=== PATIENT | male | born 1960 | race African-American/Black ===

== ENCOUNTER → 2017-05-07 | Outpatient (CLI) | payer MEDICARE, OTHER ==
[~2017-05-07] VITALS: Ht 188 cm; Wt 127.0 kg
[~2017-05-07] MED LIST: ASPI1TAB57 PO; CALC0.5C PO; CHLORHEXIDINE GLUCONATE 2 % 1 PACK (2 CLOTHS) TOPICAL PRN; CINA30 PO; HYDR-3799 PO; LACTATED RINGER'S 1000 ML IV PRN; LEVEMIR SQ; LIDOCAINE HCL 1% PF 5 ML SYRINGE OTHER ONE; LOSA50TA PO; METOPROLOL TARTRATE 25 MG TAB PO PRN; NIFE60TA58 PO; PHENYLEPH/NS 1000 MCG/10 ML SYR IV ONE; POVIDONE IODINE 5% (ANTISEPSIS KIT) 4 APPLICATIONS EACH NARE PRN; PROPOFOL 200 MG/20 ML AMP IV ONE; SODIUM CHLORID 0.9% 500 ML IV PRN
[2017-05-07 08:56] VITALS: BP 161/85; PULSE 85; RESP 18; TEMP 98.5; O2SAT 98
[2017-05-07 11:45] VITALS: BP 145/75; PULSE 74; RESP 16; TEMP 97.1; O2SAT 97
--- NOTE | 2017-05-07 12:32 | PD.PROCEDR ---
GI Procedure PROCEDURE PERFORMED Colonoscopy with snare polypectomy INDICATION FOR PROCEDURE History of colon polyps PROCEDURE: The procedure, risks and benefits were discussed with Mr. Luna and informed consent was obtained. Anesthesia sedated him with Diprivan. He was placed in the left lateral decubitus position. Colonoscopy: The Pentax videoscope was introduced through the rectum and advanced to cecum where the ileocecal valve and appendiceal orifice were identified. Retroflexion was performed in the rectum. Colonic prep was good FINDINGS: Colonic withdrawal time greater than 6 minutes as the scope was slowly withdrawn colonic mucosa was carefully inspected the patient was noted to have a medium size sessile polyp in the distal transverse colon this was excised using cold snare technique otherwise colonic examination was unremarkable and within normal limits so as retroflexion in rectal examination ESTIMATED BLOOD LOSS: None SPECIMENS REMOVED: Colonic Biopsy COMPLICATIONS: None IMPRESSION: Colon polyp PLAN: Await biopsy High-fiber diet Colonoscopy in 5 years Demarco Cross MD May 07, 2017 12:32
--- NOTE | 2017-05-07 14:53 | EKG ---
Date Performed: 05/07/2017 Time Performed: 08:40:34 PTAGE: 56 years EKG: Sinus rhythm LEFT VENTRICULAR HYPERTROPHY AND ST-T CHANGE ABNORMAL ECG NO PREVIOUS TRACING DOCTOR: Cole Barger Interpretating Date/Time 05/07/2017 14:52:47
== END ==
LOC: HSDC 07:48
PROVIDERS: ATTEND Internal Medicine Gastroenterology
DX: Z12.11 Encounter for screening for malignant neoplasm of colon (principal); Z86.010 Personal history of colon polyps; D12.3 Benign neoplasm of transverse colon; R94.31 Abnormal electrocardiogram [ECG] [EKG]
CPT/HCPCS: 00810; 45385; 88305; 93005; J2370